=== PATIENT | female | born 1975 | race Caucasian/White ===

== ENCOUNTER 2018-01-12 18:00 | Emergency (ER) | payer OTHER ==
[~2018-01-12] VITALS: Ht 160 cm; Wt 101.9 kg
[~2018-01-12 18:00] MED LIST: CITALOPRAM HBR20 MG PO; DILAUDID2 MG PO; LYRICA50 MG PO; NO MEDS; ZOFRAN ODT4 MG PO
[2018-01-12 20:06] LABS: BASOPHIL (%) 0.2 % (0-1); EOSINOPHIL (%) 0.2 % (0-5); HEMATOCRIT 39.2 % (36.0-46.0); HEMOGLOBIN 13.7 G/DL (11.9-15.5); IMMATURE GRANULOCYTE (%) 0.3 % (0.0-0.7); LYMPHOCYTE COUNT 0.3 K/uL (1.0-2.8); MCH 30.7 PG (29.0-34.0); MCHC 34.9 G/DL (30.0-36.0); MCV 87.9 FL (83-99); MONOCYTE COUNT 0.6 K/uL (0-0.8); NEUTROPHIL (%) 89.3 % (45-76); NEUTROPHIL COUNT 7.8 K/uL (1.8-6.4); PLATELET COUNT 259 K/uL (156-360); RBC DIS.WIDTH-CV 12.3 % (11.8-14.6); RBC DIS.WIDTH-SD 39.4 % (39-53); RED BLOOD COUNT 4.46 M/uL (3.80-5.20); WHITE BLOOD COUNT 8.7 K/uL (4.1-10.2)
[2018-01-12 20:14] LABS: ALBUMIN 4.3 g/dL (3.2-4.8); CHLORIDE 105 mEq/L (99-109); SODIUM 138 mEq/L (136-147)
[2018-01-12 20:15] LABS: MAGNESIUM 2.3 mg/dL (1.3-2.7)
[2018-01-12 20:17] LABS: GLUCOSE 115 mg/dL (70-99)
[2018-01-12 20:19] LABS: TOTAL BILIRUBIN 0.8 mg/dL (0.0-1.0)
[2018-01-12 20:20] LABS: ALKALINE PHOSPHATASE 73 IU/L (3-129)
[2018-01-12 20:21] LABS: CREATININE 0.8 mg/dL (0.6-1.3); GFR ESTIMATE (CALCULATED) > 59 mL/min/
[2018-01-12 20:22] LABS: AST (GOT) 126 IU/L (2-34); UREA NITROGEN (BUN) 12 mg/dL (9-23)
[2018-01-12 20:24] LABS: ALT (GPT) 76 IU/L (3-49)
[2018-01-12 20:26] LABS: TROP-I INTERPRETATION NEGATIVE; TROPONIN-I < 0.01 ng/mL (0.0-0.30)
[2018-01-12] MEDS ORDERED: ZOFRAN ODT4 MG PO (20:50)
[2018-01-12 21:12] VITALS: BP 147/42
== END 2018-01-12 21:12 | disposition home or self-care (01) ==
LOC: EME 18:00
PROVIDERS: Emergency Medicine
DX: R07.9 Chest pain, unspecified (principal); R11.2 Nausea with vomiting, unspecified; R51 Headache; R06.02 Shortness of breath; T40.2X5A Adverse effect of other opioids, initial encounter; T40.2X1A Poisoning by other opioids, accidental (unintentional), initial encounter; G35 Multiple sclerosis; R00.1 Bradycardia, unspecified; Z90.49 Acquired absence of other specified parts of digestive tract; Z90.710 Acquired absence of both cervix and uterus
CPT/HCPCS: 71045; 80053; 83735; 84484; 85025; 93005; 99281; 99284; J1885; J2765; J7040

== ENCOUNTER 2018-01-26 10:59 | Emergency (ER) | payer SELFPAY ==
[~2018-01-26] VITALS: Ht 160 cm; Wt 102.5 kg
[2018-01-26 12:12] LABS: HEMOGLOBIN 13.2 G/DL (11.9-15.5); MCHC 35.7 G/DL (30.0-36.0); MCV 86.9 FL (83-99); PLATELET COUNT 232 K/uL (156-360); RBC DIS.WIDTH-CV 12.2 % (11.8-14.6); RBC DIS.WIDTH-SD 38.6 % (39-53); RED BLOOD COUNT 4.26 M/uL (3.80-5.20); WHITE BLOOD COUNT 3.2 K/uL (4.1-10.2)
[2018-01-26 12:23] LABS: ALBUMIN 4.2 g/dL (3.2-4.8)
[2018-01-26 12:24] LABS: CHLORIDE 108 mEq/L (99-109); POTASSIUM 3.4 mEq/L (3.7-5.4); SODIUM 141 mEq/L (136-147)
[2018-01-26 12:26] LABS: GLUCOSE 100 mg/dL (70-99); TOTAL PROTEIN 6.7 g/dL (6.4-8.3)
[2018-01-26 12:28] LABS: TOTAL BILIRUBIN 0.8 mg/dL (0.0-1.0)
[2018-01-26 12:29] LABS: ALKALINE PHOSPHATASE 65 IU/L (3-129)
[2018-01-26 12:30] LABS: CREATININE 0.8 mg/dL (0.6-1.3); GFR ESTIMATE (CALCULATED) > 59 mL/min/
[2018-01-26 12:31] LABS: AST (GOT) 22 IU/L (2-34); UREA NITROGEN (BUN) 12 mg/dL (9-23)
[2018-01-26 12:32] LABS: ALT (GPT) 26 IU/L (3-49)
[2018-01-26 12:39] LABS: QUANTITATIVE HCG < 4.0 MIU/ML
[2018-01-26 13:46] LABS: APPEARANCE SL.HAZY ((CLEAR)); BILIRUBIN NEGATIVE; BLOOD MODERATE; COLOR YELLOW ((YELLOW)); GLUCOSE (STRIP) NEGATIVE; KETONES NEGATIVE; LEUKOCYTES NEGATIVE; NITRITE NEGATIVE; PROTEIN (STRIP) 30; SPECIFIC GRAVITY 1.018 (1.000-1.030)
[2018-01-26 13:54] LABS: BACTERIA RARE /HPF; EPITHELIAL CELLS RARE /HPF; MUCUS TRACE /LPF; RED BLOOD CELLS TNTC /HPF (0-5)
[2018-01-26] MEDS ORDERED: NORCO 5/3251 TABLET PO (14:38)
[2018-01-26] MEDS ORDERED: ZOFRAN ODT4 MG PO (14:38)
[2018-01-26 14:52] VITALS: BP 117/78
== END 2018-01-26 14:58 | disposition home or self-care (01) ==
LOC: EME 10:59
PROVIDERS: Nurse Practitioner Family
DX: R10.31 Right lower quadrant pain (principal); R11.0 Nausea; N20.0 Calculus of kidney; R30.0 Dysuria; R34 Anuria and oliguria; R51 Headache; Z87.442 Personal history of urinary calculi; Z90.49 Acquired absence of other specified parts of digestive tract; Z90.710 Acquired absence of both cervix and uterus; Z88.1 Allergy status to other antibiotic agents
CPT/HCPCS: 74176; 80053; 81003; 84702; 85027; 99281; 99285; J1885; J2405; J3010; J7030